=== PATIENT | male | born 1965 | race Caucasian/White ===

== ENCOUNTER 2018-11-11 14:39 | Outpatient (CLI) | payer OTHER | END 2018-11-11 23:59 | disposition home or self-care (01) | LOC: RAD 14:39 | PROVIDERS: ATTEND Nurse Practitioner Family | DX: R13.12 Dysphagia, oropharyngeal phase (principal); K21.9 Gastro-esophageal reflux disease without esophagitis; I10 Essential (primary) hypertension; E11.9 Type 2 diabetes mellitus without complications; Z87.891 Personal history of nicotine dependence; Z85.89 Personal history of malignant neoplasm of other organs and systems; Z79.899 Other long term (current) drug therapy | CPT/HCPCS: 74230 ==